=== PATIENT | female | born 1980 | race Hispanic/Latino ===

== ENCOUNTER 2021-11-19 10:36 | Outpatient (CLI) | payer BC ==
[~2021-11-19 10:36] MED LIST: Gadobenate Dimeglumine 529 MG/1 ML (20ML VIAL) ONE
== END 2021-11-19 10:37 | disposition home or self-care (01) ==
LOC: CSHMRI 10:36
PROVIDERS: ATTEND Internal Medicine Medical Oncology
DX: R41.3 Other amnesia (principal); R41.89 Other symptoms and signs involving cognitive functions and awareness; J34.89 Other specified disorders of nose and nasal sinuses
CPT/HCPCS: 70553; A9577